=== PATIENT | male | born 2005 | race Caucasian/White ===

== ENCOUNTER 2025-02-23 21:03 | Emergency (ER) | payer BC ==
[2025-02-23] MEDS ORDERED: cefTRIAXone (ROCEPHIN) 1 GM VIAL ONE (22:30)
[2025-02-23] MEDS ORDERED: Dexamethasone 10 MG/ML VIAL ONE (22:30)
[2025-02-23] MEDS ORDERED: Lidocaine 1% PF 5 ML VIAL ONE (22:30)
== END 2025-02-23 22:41 | disposition home or self-care (01) ==
LOC: ERS 21:03
DX: J18.9 Pneumonia, unspecified organism (principal)
CPT/HCPCS: 71045; 96372; J0696; J1100